=== PATIENT | male | born 1980 | race Caucasian/White ===

== ENCOUNTER 2022-12-08 08:10 | Outpatient (CLI) | payer OTHER, SELFPAY | END 2022-12-08 08:11 | disposition home or self-care (01) | LOC: NFLDREF 12-11 20:18 | PROVIDERS: PCP Emergency Medicine; Referring Provider Emergency Medicine; Visit Provider Emergency Medicine | DX: Z00.00 Encounter for general adult medical examination without abnormal findings (principal); E78.5 Hyperlipidemia, unspecified; R07.9 Chest pain, unspecified; Z87.448 Personal history of other diseases of urinary system | CPT/HCPCS: 80048; 80061; 80076; 86790 ==